=== PATIENT | male | born 1980 | race Caucasian/White ===

== ENCOUNTER 2024-05-20 19:02 | Emergency (ER) | payer OTHER ==
[~2024-05-20] VITALS: Ht 185.4 cm; Wt 125.6 kg
[2024-05-20 19:22] VITALS: TEMP 98.6
[2024-05-20] MEDS: TETRACAINE HCL 0.5% OPTH SOLN 4 ML BTL OP ONE (19:50)
[2024-05-20] MEDS: CYCLOPENTOLATE HCL 1% OPTH SOLN 2ML BTL OP ONE (19:50)
[2024-05-20 19:54] VITALS: PULSE 80; RESP 18
[2024-05-20] MEDS: CLONIDINE HCL 0.1 MG TAB PO ONE (20:17)
[2024-05-20 21:20] VITALS: BP 154/99; PULSE 80; RESP 18; TEMP 98.6; O2SAT 98
== END 2024-05-20 21:20 | disposition home or self-care (01) ==
LOC: FSED 19:14
DX: H43.391 Other vitreous opacities, right eye (principal); R73.03 Prediabetes
CPT/HCPCS: 99282